=== PATIENT | male | born 1980 | race Native Hawaiian/Other Pacific Islander ===

== ENCOUNTER 2021-10-03 11:57 | Emergency (ER) | payer OTHER ==
--- NOTE | 2021-10-03 12:30 | Emergency Department Report ---
ED Chest Pain HPI - General Chief Complaint: Chest Pain Stated Complaint: CHEST PAIN Time Seen by Provider: 10/03/21 12:03 Source: patient Mode of arrival: Ambulatory Limitations: No Limitations - History of Present Illness Initial Comments: The patient was evaluated in the emergency department for symptoms described in the history of present illness. He/she was evaluated in the context of the global COVID-19 pandemic, which necessitated consideration that the patient might be at risk for infection with the virus that causes COVID-19. Institutional protocols and algorithms that pertain to the evaluation of patients at risk for COVID-19 are in a state of rapid change based on information released by regulatory bodies including the CDC and federal and state organizations. These policies and algorithms were followed during the patient's care in the emergency department. Please note that these policies, procedures and recommendations changed on a rapid basis. 40-year-old male presents to the emergency room stating that he is having back pain that radiates to his chest that is sharp and will often make him drop to his knees. Patient states is been going on for 4 years. Patient states that is progressively getting worse. Patient states that he will have shortness of breath when it comes. Denies nausea vomiting and admits to intermittent dizziness. Patient states his primary care provider is in [place]. 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 He states that at times he feels like his heart just stops. He states he is never injured his back. He does report a history of surfing when he was younger. Patient denies any past medical history reports he is allergic to codeine gives him a rash and swelling. He has never taken anything for pain. MD Complaint: chest pain - Related Data Previous Rx's Medication Instructions Recorded Last Taken Type Ibuprofen [Motrin 800 MG tab] 800 mg PO Q8HR PRN #30 tablet 10/03/21 Unknown Rx Allergies Allergy/AdvReac Type Severity Reaction Status Date / Time codeine AdvReac Hives Verified 10/03/21 11:59 Heart Score - HEART Score History: Slightly suspicious EKG: Normal Age: < 45 Risk factors: No known risk factors Troponin: < normal limit HEART Score: 0 - EKG Read Time Time EKG Completed: 12:05 EKG Read Time: 12:08 ED Review of Systems ROS: Stated complaint: CHEST PAIN Other details as noted in HPI Comment: All other systems reviewed and negative ED Past Medical Hx - Medications Home Medications: Home Medications Medication Instructions Recorded Confirmed Last Taken Type Ibuprofen [Motrin 800 MG tab] 800 mg PO Q8HR PRN #30 tablet 10/03/21 Unknown Rx ED Physical Exam - General Limitations: No Limitations General appearance: alert, in no apparent distress - Head Head exam: Present: atraumatic, normocephalic - Eye Eye exam: Present: normal appearance - ENT ENT exam: Present: mucous membranes moist - Neck Neck exam: Present: normal inspection - Respiratory Respiratory exam: Present: normal lung sounds bilaterally, chest wall tenderness. Absent: respiratory distress - Cardiovascular Cardiovascular Exam: Present: regular rate, normal rhythm. Absent: systolic murmur, diastolic murmur, rubs, gallop - GI/Abdominal GI/Abdominal exam: Present: soft, normal bowel sounds - Rectal Rectal exam: Present: deferred - Extremities Exam Extremities exam: Present: normal inspection - Back Exam Back exam: Present: normal inspection, full ROM, tenderness (Left upper back). Absent: paraspinal tenderness, vertebral tenderness, rash noted - Neurological Exam Neurological exam: Present: alert, oriented X3, normal gait - Psychiatric Psychiatric exam: Present: normal affect, normal mood - Skin Skin exam: Present: warm, dry, intact, normal color. Absent: rash ED Course Vital Signs 10/03/21 10/03/21 11:57 16:35 Temperature 97.9 F 98.4 F Pulse Rate 65 76 Respiratory 18 18 Rate Blood Pressure 135/83 130/72 [Left] O2 Sat by Pulse 100 100 Oximetry AZAR score - Azar Score Age > 65: (0) No Aspirin use within the Past 7 Days: (0) No 3 or more CAD Risk Factors: (0) No 2 or more Angina events in past 24 hrs: (0) No Known CAD with more than 50% Stenosis: (0) No Elevated Cardiac Markers: (0) No ST Deviation Greater than 0.5mm: (0) No AZAR Score: 0 ED Medical Decision Making - Lab Data Result diagrams: 10/03/21 12:25 10/03/21 12:25 Lab Results 10/03/21 10/03/21 10/03/21 Range/Units 12:25 12:25 12:25 WBC 7.8 (4.5-11.0) K/mm3 RBC 5.15 H (3.65-5.03) M/mm3 Hgb 14.5 (11.8-15.2) gm/dl Hct 44.9 (35.5-45.6) % MCV 87 (84-94) fl MCH 28 (28-32) pg MCHC 32 (32-34) % RDW 12.6 L (13.2-15.2) % Plt Count 375 (140-440) K/mm3 Lymph % (Auto) 33.1 (13.4-35.0) % [place] % (Auto) 6.6 (0.0-7.3) % Eos % (Auto) 1.7 (0.0-4.3) % Baso % (Auto) 0.8 (0.0-1.8) % Lymph # (Auto) 2.6 (1.2-5.4) K/mm3 [place] # (Auto) 0.5 (0.0-0.8) K/mm3 Eos # (Auto) 0.1 (0.0-0.4) K/mm3 Baso # (Auto) 0.1 (0.0-0.1) K/mm3 Seg Neutrophils % 57.8 (40.0-70.0) % Seg Neutrophils # 4.5 (1.8-7.7) K/mm3 D-Dimer 144.49 (0-234) ng/mlDDU Sodium 138 (137-145) mmol/L Potassium 4.1 (3.6-5.0) mmol/L Chloride 100.7 (98-107) mmol/L Carbon Dioxide 24 (22-30) mmol/L Anion Gap 17 mmol/L BUN 7 L (9-20) mg/dL Creatinine 0.8 (0.8-1.3) mg/dL Estimated GFR > 60 ml/min BUN/Creatinine Ratio 9 % Glucose 121 H (75-100) mg/dL Calcium 9.1 (8.4-10.2) mg/dL Total Bilirubin 0.70 (0.1-1.2) mg/dL AST 19 (5-40) units/L ALT 19 (7-56) units/L Alkaline Phosphatase 55 (35-129) units/L Troponin T < 0.010 (0.00-0.029) ng/mL Total Protein 7.8 (6.3-8.2) g/dL Albumin 4.7 (3.9-5) g/dL Albumin/Globulin Ratio 1.5 % - Radiology Data Radiology results: report reviewed [facility] [address] [place] [address] XRay Report Signed Patient: MCKAY TORRES MR#: [id number] : 1980 Acct:[id number] Age/Sex: 40 / M ADM Date: 10/03/21 Loc: ED Attending Dr: Ordering Physician: MELISSA ZAMARRIPA Date of Service: 10/03/21 Procedure(s): XR chest routine 2V Accession Number(s): [id number] cc: MELISSA ZAMARRIPA Fluoro Time In Minutes: CHEST 2 VIEWS INDICATION / CLINICAL INFORMATION: Chest Pain. COMPARISON: None available. FINDINGS: SUPPORT DEVICES: None. HEART / MEDIASTINUM: No significant abnormality. LUNGS / PLEURA: There is biapical scarring. The lungs are otherwise clear. No significant pleural effusion. No pneumothorax. ADDITIONAL FINDINGS: No significant additional findings. IMPRESSION: 1. No acute abnormality of the chest. Signer Name: Jersey Suero MD Signed: 10/03/2021 12:58 PM Workstation Name: [id number] Transcribed By: [place] Dictated By: Jersey Suero MD Electronically Authenticated By: Jersey Suero MD Signed Date/Time: 10/03/211257 DD/ 57 TD/TT: Print Cancel - Medical Decision Making 40-year-old male presents to the emergency room stating that he is having back pain that radiates to his chest that is sharp and will often make him drop to his knees. Patient states is been going on for 4 years. Patient states that is progressively getting worse. Patient states that he will have shortness of breath when it comes. Denies nausea vomiting and admits to intermittent dizziness. Patient states his primary care provider is in [place]. 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 He states that at times he feels like his heart just stops. He states he is never injured his back. He does report a history of surfing when he was younger. Patient denies any past medical history reports he is allergic to codeine gives him a rash and swelling. He has never taken anything for pain. The patient is resting comfortably and feeling better, is alert and in no distress. The repeat examination is unremarkable and benign. The electrocardiogram shows no signs of acute ischemia and the history, exam, diagnostic testing and current condition do not suggest that this patient is having acute myocardial infarction, significant arrhythmia, unstable angina, esophageal perforation, pulmonary embolism, aortic dissection, pneumothorax, severe pneumonia, sepsis or other significant pathology that would warrant further testing, continued ED treatment, admission, or cardiology or other specialist consultation at this point. The vital signs have been stable. The patient's condition is stable and appropriate for discharge. The patient will pursue further outpatient evaluation with primary care physician, other designated physician or enterostomal therapy nurse. The patient and/or caregiver have expressed a clear in thorough understanding and agrees to the follow-up as instructed. Critical care attestation.: If time is entered above; I have spent that time in minutes in the direct care of this critically ill patient, excluding procedure time. ED Disposition Clinical Impression: Acute nonspecific chest pain with low risk of coronary artery disease, Tenderness of back Disposition: 01 HOME / SELF CARE / HOMELESS Is pt being admited?: No Does the pt Need Aspirin: No Condition: Stable Instructions: Chest Pain (ED), Chest Wall Pain, [id number], Chronic Back Pain, [id number], Nonspecific Chest Pain, Adult, [id number] Additional Instructions: Chest x-ray is negative EKG is nonactionable labs are all stable. I do recommend ibuprofen for your back pain and tenderness follow-up with a enterostomal therapy nurse and a primary care provider I have listed their information below for your convenience. Prescriptions: Ibuprofen [Motrin 800 MG tab] 800 mg PO Q8HR PRN #30 tablet PRN Reason: Pain , Severe (7-10) Referrals: STEVIE VILLALOBOS MD [Primary Care Provider] - 3-5 Days [facility] [Provider Group] - 3-5 Days KRAIG ACUNA MD [Staff Physician] - 3-5 Days Forms: Work/School Release Form(ED) Time of Disposition: 17:23
[2021-10-03 12:37] LABS: Basophils # (Auto) 0.1 K/mm3 (0.0-0.1); Basophils % (Auto) 0.8 % (0.0-1.8); Eosinophils # (Auto) 0.1 K/mm3 (0.0-0.4); Eosinophils % (Auto) 1.7 % (0.0-4.3); Hematocrit 44.9 % (35.5-45.6); Hemoglobin 14.5 gm/dl (11.8-15.2); Lymphocytes # (Auto) 2.6 K/mm3 (1.2-5.4); Lymphocytes % (Auto) 33.1 % (13.4-35.0); Mean Corpuscular HGB Conc 32 % (32-34); Mean Corpuscular Volume 87 fl (84-94); Monocytes # (Auto) 0.5 K/mm3 (0.0-0.8); Monocytes % (Auto) 6.6 % (0.0-7.3); Platelet Count 375 K/mm3 (140-440); Red Blood Count 5.15 M/mm3 (3.65-5.03); Red Cell Distribution Width 12.6 % (13.2-15.2)
[2021-10-03 12:55] LABS: Alanine Aminotransferase 19 units/L (7-56); Albumin 4.7 g/dL (3.9-5); BUN/Creatinine Ratio 9; Blood Urea Nitrogen 7 mg/dL (9-20); Calcium 9.1 mg/dL (8.4-10.2); Hemolysis Index 5
--- NOTE | 2021-10-03 13:03 | XRay Report ---
CHEST 2 VIEWS INDICATION / CLINICAL INFORMATION: Chest Pain. COMPARISON: None available. FINDINGS: SUPPORT DEVICES: None. HEART / MEDIASTINUM: No significant abnormality. LUNGS / PLEURA: There is biapical scarring. The lungs are otherwise clear. No significant pleural eff usion. No pneumothorax. ADDITIONAL FINDINGS: No significant additional findings. IMPRESSION: 1. No acute abnormality of the chest. Signer Name: Jersey Suero MD Signed: 10/03/2021 12:58 PM Workstation Name: [id number]
[2021-10-03 16:36] VITALS: BP 130/72
--- NOTE | 2021-10-04 10:43 | Electrocardiograph Report ---
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
== END 2021-10-03 17:33 | disposition home or self-care (01) ==
LOC: ED 11:57
DX: R07.89 Other chest pain (principal); M54.9 Dorsalgia, unspecified; Z88.5 Allergy status to narcotic agent; Z79.899 Other long term (current) drug therapy
CPT/HCPCS: 36415; 71046; 80053; 84484; 85025; 85379; 93005; 99283